=== PATIENT | female | born 1955 | race Caucasian/White ===

== ENCOUNTER 2022-06-06 10:15 | Outpatient (CLI) | payer MEDICARE | END 2022-06-06 10:16 | disposition home or self-care (01) | LOC: CSHMAMMO 10:15 | PROVIDERS: ATTEND Student in an Organized Health Care Education/Training Program | DX: Z12.31 Encounter for screening mammogram for malignant neoplasm of breast (principal) | CPT/HCPCS: 77063; 77067 ==

== ENCOUNTER 2023-01-16 09:19 | Outpatient (CLI) | payer MEDICARE | END 2023-01-16 09:20 | disposition home or self-care (01) | LOC: CSHMAMMO 09:19 | PROVIDERS: ATTEND Student in an Organized Health Care Education/Training Program | DX: Z13.820 Encounter for screening for osteoporosis (principal); M85.89 Other specified disorders of bone density and structure, multiple sites; Z78.0 Asymptomatic menopausal state | CPT/HCPCS: 77080 ==